=== PATIENT | female | born 1945 | race Caucasian/White ===

== ENCOUNTER 2021-07-12 18:13 | Emergency (ER) | payer MEDICARE, MEDICAID, SELFPAY ==
--- NOTE | ~2021-07-12 | XR_ITS ---
EXAMINATION: PORTABLE CHEST 1 VIEW CLINICAL INFORMATION: cough covid . COMPARISON: 11/21/2012. TECHNIQUE: Portable frontal view of the chest was obtained. FINDINGS: The lungs are well expanded. Mild chronic appearing coarsened reticular markings bilaterally but no superimposed focal infiltrate, effusion, edema, or pneumothorax. Cardiac and mediastinal silhouettes are within normal limits for technique. No acute bony abnormality seen. Degenerative changes in the spine and shoulders noted. XR/XR chest 1V IMPRESSION: Chronic appearing changes but no focal consolidation.
[2021-07-12 18:41] VITALS: BP 137/62; BP 140/90; PULSE 69; PULSE 80; RESP 16; TEMP 37.1; O2SAT 96; O2SAT 97; BMI 40.6
[2021-07-12 19:24] LABS: COVID-19 Test Positive (Negative); IDNOW Serial# 16C4AD1C
--- NOTE | 2021-07-12 20:08 | ED.GENADULT ---
HPI - General Adult General Chief complaint: Upper Respiratory Symptoms Stated complaint: COUGH,FEVER,SORE THROAT,+HOME COVID TEST TONIGHT Time Seen by Provider: 07/12/21 18:44 Source: patient and family Limitations: no limitations History of Present Illness HPI narrative: This is a 75-year-old female with history of diabetes and hypertension, unvaccinated for COVID, who since last night has had a cough, some rhinorrhea, and a feeling of fever. She denies feeling short of breath. She has not had any vomiting or diarrhea. She denies abdominal pain. Related Data Allergies Allergy/AdvReac Type Severity Reaction Status Date / Time lisinopril Allergy Unknown Hives Verified 07/12/21 18:41 No Known Allergies Allergy Unverified 11/28/19 15:58 Review of Systems Review of Systems: Yes all other systems are reviewed and are negative Constitutional: Constitutional: Reports as per HPI, Reports body ache(s) and Reports fever(s) Eyes: Eyes: Reports as per HPI and Reports no additional eye complaints ENT: Reports system reviewed and no additional complaints, except as documented, Reports as per HPI, Denies nasal congestion, Reports nasal discharge and Denies sore throat Cardiovascular: Cardiovascular: Reports as per HPI, Denies chest pain and Denies dyspnea Respiratory: Respiratory: Reports as per HPI, Reports cough and Denies dyspnea Gastrointestinal: Gastrointestinal: Reports as per HPI, Denies abdominal pain, Denies diarrhea and Denies vomiting Genitourinary: Genitourinary: Reports as per HPI, Denies hematuria, Denies urinary frequency and Denies dysuria Musculoskeletal: Musculoskeletal: Reports no additional musculoskeletal complaints and Denies numbness Integumentary/Breasts: Skin/Breast: Reports as per HPI and Denies rash Neurologic: Reports as per HPI, Denies focal weakness and Denies numbness Psychiatric: Psychiatric: Reports no additional psychiatric complaints and Reports as per HPI Endocrine: Endocrine: Reports no additional endocrine complaints and Reports as per HPI Hematologic/Lymphatic: Hematologic/Lymphatic: Reports no additional hematologic/lymphatic complaints, Reports as per HPI and Reports other (No peripheral edema) [facility] Social History Social History Advance Directives: No Advance Directives Information Provided: No Physical Exam ED Vital Signs: Vital Signs - 24 hr 07/12/21 18:41 07/12/21 22:17 Temperature 98.8 F Pulse Rate 69 77 Respiratory Rate 16 16 Blood Pressure 137/62 157/55 H Pulse Oximetry 96 97 BMI result Body Mass Index 40.6 Const General: no acute distress Orientation/consciousness: patient oriented x3 HENMT Head: Yes normal to inspection General nose exam: Normal external nose present Mouth: moist mucous membranes Throat: Yes posterior oropharynx normal, Yes tonsils normal and Yes uvula midline Eyes Eyelids: Yes eyelids normal Conjunctivae: conjunctivae normal Pupils: Equal, round and reactive pupils present Neck Neck: Yes supple Resp Effort & Inspection: normal respiratory effort Auscultation: clear to auscultation bilaterally Cardio Rate: regular rate Rhythm: regular rhythm Heart sounds: S1 normal heart sound present, S2 normal heart sound present, no gallops, no murmurs and no rubs GI Inspection: No distended Palpation (GI): Soft to palpation and nontender Auscultation: normal bowel sounds Skin General skin exam: other (Warm and dry) Neuro General: patient oriented x3 and CN's II-XI intact bilaterally Cranial nerves: Yes Equal, round and reactive pupils present Extrem General: Yes no pedal edema Psych Affect: normal affect Attitude: cooperative Medical Decision Making [facility] Narrative Medical decision making narrative: Patient with COVID symptoms which began last night, has a confirmed positive COVID test here after having a home 1 that was positive. Patient is not immunized for COVID, is diabetic, moderately obese. She is high risk for COVID complications. Chest x-ray negative. I have ordered PAxlovid and also a referral for outpatient monoclonal antibody treatment. Patient advised to monitor her pulse oximetry at home. Lab Data Lab results reviewed: Yes I reviewed the patient's lab results. Result diagrams: 07/12/21 21:03 07/12/21 21:03 Labs: Lab Results 07/12/21 07/12/21 07/12/21 Range/Units 19:04 21:03 21:03 WBC 3.8 L (4.8-10.8) X10*3/uL RBC 5.27 (4.20-5.50) X10*6/uL Hgb 14.1 (12.0-16.0) g/dl Hct 42.8 (37.0-47.0) % MCV 81.2 (80.0-98.0) fL MCH 26.8 L (27.0-33.0) pg MCHC 32.9 (31.0-35.0) g/dl RDW 13.2 (11.0-16.0) % Plt Count 200 (160-400) X10*3/uL MPV 10.2 (9.4-12.3) fL Immature Gran % (Auto) 0.3 (0.0-0.4) % Neut % (Auto) 34.2 L (45-73) % Lymph % (Auto) 48.4 H (20-40) % Waller % (Auto) 16.8 H (2-11) % Eos % (Auto) 0.0 (0-4) % Baso % (Auto) 0.3 (0-2) % Lymph # (Auto) 1.8 (1.2-4.9) X10*3/uL Waller # (Auto) 0.6 (0.1-1.2) X10*3/uL Eos # (Auto) 0.0 (0.0-0.4) X10*3/uL Baso # (Auto) 0.0 (0.0-0.2) X10*3/uL Abs Immat Gran (auto) 0.01 (0.00-0.03) X10*3/uL Absolute Neuts (auto) 1.3 L (2.0-8.3) x10*3/uL Absolute Nucleated RBC 0.000 (0.0-0.012) X10*3/uL Nucleated RBC % (auto) 0.0 (0.0-0.2) /100WBC Sodium 134 L (135-145) mmol/L Potassium 3.9 (3.3-5.1) mmol/L Chloride 100 (96-108) mmol/L Carbon Dioxide 27 (22-29) mmol/L Anion Gap 11 L (12-20) BUN 10 (9-16) mg/dL Creatinine 0.88 (0.5-1.4) mg/dL Estim Creat Clear Calc 59.9 Estimated GFR > 60 Random Glucose 377 H* (60-115) mg/dL Calcium 8.8 (8.4-10.2) mg/dL Total Bilirubin 0.5 (0.0-1.0) mg/dL AST 19 (5-31) U/L ALT 24 (0-31) U/L Alkaline Phosphatase 91 (39-117) U/L Total Protein 6.7 (6.5-8.0) g/dL Albumin 3.6 (3.5-5.0) g/dL COVID-19 (BIN) Positive A (Negative) COVID-19 Clin Com See Note Imaging Data Chest x-ray: Radiologist's impression: IMPRESSION: Chronic appearing changes but no focal consolidation. Discharge Plan Discharge Clinical Impression: COVID-19, Hyperglycemia Patient Disposition: Home, Self-Care Instructions: COVID-19 (Coronavirus Disease 2019) (ED) Additional Instructions: Continue yourcurrent medications. Purchase a pulse oximetry device to check your oxygen level daily to make sure does not fall below 91%. Return for any new or worsened symptoms. I have ordered you to have paxovid (an anti viral medication for COVID) and possible monoclonal antibodies for your COVID. You will be contacted tomorrow regarding initiation of this therapy.
[2021-07-12 21:08] LABS: MANUAL DIFF FLAG NO
[2021-07-12 21:09] LABS: Basophils Percent Auto 0.3 % (0-2); Hematocrit 42.8 % (37.0-47.0); Hemoglobin 14.1 g/dl (12.0-16.0); Imm Gran Abs Auto 0.01 X10*3/uL (0.00-0.03); Imm Gran Pct Auto 0.3 % (0.0-0.4); Lymphocytes Absolute Auto 1.8 X10*3/uL (1.2-4.9); Lymphocytes Percent Auto 48.4 % (20-40); Mean Corpuscular HGB Conc 32.9 g/dl (31.0-35.0); Mean Corpuscular Hemoglobin 26.8 pg (27.0-33.0); Mean Corpuscular Volume 81.2 fL (80.0-98.0); Mean Platelet Volume 10.2 fL (9.4-12.3); Monocytes Absolute Auto 0.6 X10*3/uL (0.1-1.2); Monocytes Percent Auto 16.8 % (2-11); Neutrophils Absolute Auto 1.3 x10*3/uL (2.0-8.3); Neutrophils Percent Auto 34.2 % (45-73); Platelet Count 200 X10*3/uL (160-400); Red Blood Count 5.27 X10*6/uL (4.20-5.50); Red Cell Distribution Width 13.2 % (11.0-16.0); White Blood Count 3.8 X10*3/uL (4.8-10.8)
[2021-07-12 21:37] LABS: Alanine Aminotransferase 24 U/L (0-31); Albumin Level 3.6 g/dL (3.5-5.0); Alkaline Phosphatase 91 U/L (39-117); Anion Gap 11 (12-20); Aspartate Amino Transferase 19 U/L (5-31); Bilirubin Total 0.5 mg/dL (0.0-1.0); Blood Urea Nitrogen 10 mg/dL (9-16); Calcium 8.8 mg/dL (8.4-10.2); Carbon Dioxide 27 mmol/L (22-29); Chloride 100 mmol/L (96-108); Creatinine Clr Calc Pharmacy 59.9; Estimated Glomerular Filt Rate > 60; Glucose Random 377 mg/dL (60-115); Potassium 3.9 mmol/L (3.3-5.1); Sodium 134 mmol/L (135-145); Total Protein 6.7 g/dL (6.5-8.0)
[2021-07-12 22:17] VITALS: BP 157/55; PULSE 77; RESP 16; O2SAT 97
== END 2021-07-12 22:44 | disposition home or self-care (01) ==
PROVIDERS: Emergency Provider Emergency Medicine; PCP Nurse Practitioner Family
DX: U07.1 COVID-19 (principal); R05.9 Cough, unspecified; R50.9 Fever, unspecified; R73.9 Hyperglycemia, unspecified; Z79.899 Other long term (current) drug therapy
CPT/HCPCS: 36415; 71045; 80053; 85025; 87635; 99283; 99284